=== PATIENT | male | born 1955 | race Caucasian/White ===

== ENCOUNTER → 2017-02-20 10:05 | Day surgery (SDC) | payer OTHER ==
[~2017-02-20 10:05] MED LIST: Buffered Lidocaine 0.9% SYRIN* 5 ML/SYR SYRINGE INTRADERM ONE; Buffered Lidocaine 0.9% SYRIN* 5 ML/SYR SYRINGE ONE; Bupivacaine 0.25% SDV* 30 ML ONE; Dexamethasone IV* 4 MG/ML 1 ML (4 MG) ONE; HYDROcodone/ACETAMIN 5-325 MG* 1 TAB ONE; Ibuprofen TAB* 400 MG ONE; Lidocaine 1% MPF wEPI 200,000* 30 ML SDV ONE; Lidocaine 2% PF * 5 ML VIAL ONE; Ondansetron INJ* 2 MG/ML VIAL IV PRN; Ondansetron INJ* 2 MG/ML VIAL ONE; Propofol* 10 MG/ML 20 ML BTL IV PUSH ONE; Sodium Citrate/Citric Acid* 15 ML UDC ONE; Sodium Citrate/Citric Acid* 15 ML UDC PO ONE; ceFAZolin 2 GM PREMIX (*) 2 GM/50 ML BAG IVPB ONE; fentaNYL* 50 MCG/ML 2 ML VIAL (100 MCG VIAL) ONE
[2017-02-20] MEDS: fentaNYL* 50 MCG/ML 2 ML VIAL (100 MCG VIAL) IV PRN ×4 (15:55→16:51)
[2017-02-20 17:04] VITALS: BP 137/83
--- NOTE | 2017-02-21 10:41 | OP ---
DATE OF OPERATION: 02/20/17 [facility] DATE OF : 57 SURGEON: Andres Camp MD. ROLLER PRINT TENDER: KAYLEEN Alonso. An chef's assistant was needed for entirety of the procedure to aid in positioning of the arm and retraction. ANESTHESIOLOGIST: Dr. Donnell Lawler. ANESTHESIA: General. PRE-OP DIAGNOSES: 1. Right carpal tunnel syndrome. 2. Right ulnar nerve compression at the wrist and elbow. POST-OP DIAGNOSES: 1. Right carpal tunnel syndrome. 2. Right ulnar nerve compression at the wrist and elbow. OPERATIVE PROCEDURE: 1. Right carpal tunnel release. 2. Right ulnar nerve decompression at the wrist 3. Right ulnar nerve decompression at the elbow with anterior transposition. INDICATIONS: Tay has had progressive disease. We talked about risks and benefits and he wanted to proceed. ESTIMATED BLOOD LOSS: 5 mL. COMPLICATIONS: None. FINDINGS: The ulnar nerve was sitting subluxated, perched and draped over the medial epicondyle necessitating the transposition. DESCRIPTION OF PROCEDURE: Tay was seen in the preoperative holding area. The correct site, side, and procedure were identified. We came back to the operating room and the arm was prepped and draped in the usual fashion. A time- out was performed. I began by exsanguinating the arm with the Esmarch and the tourniquet was inflated to 250 mmHg. I then made a 2 to 3 cm incision in the proximal palm in a standard location for an open carpal tunnel release. This was brought back across the wrist flexion crease ulnarly in a Ever-type fashion. Dissection was carried down through the subcutaneous tissue. The fascia was opened proximally and continued distally. I then went ahead and released the transverse carpal ligament just off the radial aspect at the hook of the hamate. The release was completed distally. The median nerve was quite compressed and flattened and purple. Once there was absolutely no compression on the median nerve, I went ahead and just came ulnar to the hook of the hamate. The ulnar nerve vascular bundle was unroofed. Dissection was very carefully done so as to separate the ulnar artery from the ulnar nerve deep to it. Some perforating vessels were cauterized. I went ahead and gently retracted the ulnar nerve and then released the fascia overlying the motor branch to decompress the motor branch. I went ahead and used the tenotomy scissors to continue the decompression proximally and distally. There was at this point, no more further compression on the nerves, so we irrigated out the wound. The wound was closed with 4-0 Monocryl suture. I then abducted and externally rotated the arm. A curvilinear incision was made centered over Robles's ligament. Dissection was carried down with Bovie proximally and distally with tenotomy scissors. The medial antebrachial cutaneous nerve was identified and protected throughout the case. The ulnar nerve was sitting draped and stretched out over the medial epicondyle. It was already subluxated anteriorly. The release was completed proximally and then distally the FCU fascia was released. At this point, there was no overlying fascia or Robles's ligament that was compressing the nerve; however, the nerve was draped and perched over the medial epicondyle. I therefore went ahead and excised the medial intermuscular septum. I excised the leading edge of the FCU fascia. I went ahead and made step cut incision in the fascia and went ahead and excised all the septa in between the muscles in the flexor pronator mass. The nerve was transposed anteriorly unto the muscular bed. The double opposing fascial flaps were then sewed end to end to provide a nice loose fascial sling over the nerve keeping it in nicely in the transposed position. I then flexed and extended the below. There was absolutely no compression or kinking of the nerve. Again, I had excised the medial intermuscular septum and the leading edge of the FCU fascia. Everything was looking good, so we irrigated out the wounds. Subcutaneous tissue was reapproximated with 3-0 Vicryl. The skin was closed with 3-0 Monocryl suture and Steri-Strips. The wounds were infiltrated with 0.25% plain Marcaine. The wounds were dressed in with some Xeroform, 4x4s and ABD at the elbow, sterile Webril and then a long-arm splint was applied with a lateral buttress. Tourniquet was deflated and the hand pinked up immediately. He was taken to the recovery room in stable condition. [id number]/[facility] #: [id number] MTDD
== END | disposition home or self-care (01) ==
LOC: OR 10:05
PROVIDERS: ATTEND Orthopaedic Surgery Hand Surgery
DX: G56.01 Carpal tunnel syndrome, right upper limb (principal); G56.21 Lesion of ulnar nerve, right upper limb; Z87.891 Personal history of nicotine dependence; Z86.718 Personal history of other venous thrombosis and embolism; Z79.01 Long term (current) use of anticoagulants; Z88.8 Allergy status to other drugs, medicaments and biological substances
CPT/HCPCS: A9270-GY; J0690; J1100; J2001; J2405; J2704; J3010

== ENCOUNTER 2017-03-01 02:43 | Emergency (ER) | payer OTHER ==
[2017-03-01] MEDS ORDERED: fentaNYL* 50 MCG/ML 2 ML VIAL (100 MCG VIAL) IV SLOW PU ONE ×2 (02:59→03:27)
[2017-03-01] MEDS ORDERED: Ondansetron INJ* 2 MG/ML VIAL IV ONE (03:01)
[2017-03-01] MEDS ORDERED: NS 0.9% 500 ML* 500 ML IV ONE (03:01)
[2017-03-01 03:31] LABS: Hematocrit 41 % (42-52); Hemoglobin 14.1 g/dl (14.0-18.0); Mean Corpuscular HGB Conc 34 g/dl (31-36); Mean Corpuscular Hemoglobin 31 pg (27-31); Mean Corpuscular Volume 91 fL (80-94); Mean Platelet Volume 8 um3 (7.4-10.4); Red Blood Count 4.54 10^6/ul (4.0-5.4); Red Cell Distribution Width 14 % (10.5-15); White Blood Count 11.8 10^3/ul (3.5-10.8)
[2017-03-01 03:42] LABS: ALT 43 U/L (7-52); Albumin 4.2 g/dL (3.2-5.2); Alkaline Phosphatase 63 U/L (34-104); BUN/Creatinine Ratio 17.6 (8-20); Blood Urea Nitrogen 18 mg/dL (6-24); C Reactive Protein 1.48 mg/L (< 5.00); CO2 Carbon Dioxide 25 mmol/L (22-32); Calcium 9.4 mg/dL (8.6-10.3); Chloride 100 mmol/L (101-111); EGFR African American 95.8 (>60); EGFR Non-African American 74.5 (>60); Globulin 2.9 g/dL (2-4); Glucose 127 mg/dL (70-100); Sodium 134 mmol/L (133-145); Total Protein 7.1 g/dL (6.4-8.9)
[2017-03-01 03:51] LABS: Anion Gap 9 mmol/L (2-11)
[2017-03-01] MEDS ORDERED: NS 0.9% 1000 ML* 1,000 ML IV ONE (04:04)
[2017-03-01] MEDS ORDERED: LORazepam INJ* 2 MG/ML 1 ML VIAL IV PUSH ONE (04:05)
[2017-03-01] MEDS ORDERED: Cephalexin CAP* 500 MG PO ONE (05:38)
--- NOTE | 2017-03-01 06:06 | ED ---
Nicole Deshpande Thomas, scribed for Nick Bennett MD on 03/01/17 at 0338 . Upper Extremity Pain - HPI Summary HPI Summary: The pt is a 61 y/o M who had carpel tunnel surgery and ulnar nerve transposition nine days ago. The patient was successfully managing his pain until today at 00:30, when he woke up with severe pain in his RUE. The pain is concentrated to his right elbow and radiates down to his hand. He describes the pain as burning. He is in severe pain. He called his orthopedist Dr. Valencia, who suggested the patient unwrap his berenice bandage; however, the patient felt unable to do this. The patient has been managing his pain at home with Tylenol, although he did take a hydrocodone today at 01:00. He denies a fever. - History of Current Complaint Chief Complaint: EDExtremityUpper Stated Complaint: ELBOW/FINGER PAINS Time Seen by Provider: 03/01/17 02:52 Hx Obtained From: Patient Mechanism Of Injury: Other - Surgery Onset/Duration: Started Days Ago - 9, Still Present, Worse Since - today at 00: 30 Timing: Constant Severity Currently: Severe Pain Location: Elbow - R Character: Burning Alleviating Factor(s): Nothing Associated Signs & Symptoms: Negative: Fever Related History: Other: - Carpal tunnel surgery and ulnar nerve transposition - Allergies/Home Medications Allergies/Adverse Reactions: Allergies Allergy/AdvReac Type Severity Reaction Status Date / Time Itraconazole [From Sporanox] Allergy Intermediate Hives Verified 03/01/17 02:50 PMH/Surg Hx/FS Hx/Imm Hx Previously Healthy: No Endocrine/Hematology History: Reports: Other Endocrine/Hematological Disorders - rheumatoid arthritis Denies: Hx Diabetes Cardiovascular History: Reports: Hx Hypercholesterolemia, Hx Peripheral Vascular Disease - 2010 , ON XARELTO DAILYDVT Denies: Hx Hypertension, Hx Pacemaker/ICD, Other Cardiovascular Problems/ Disorders Respiratory History: Denies: Hx Chronic Obstructive Pulmonary Disease (COPD) History: Denies: Hx Dialysis, Hx Renal Disease Musculoskeletal History: Reports: Hx Arthritis - RHEUMATOID & OSTEO, Hx Tendonitis - RIGHT ARM Denies: Hx Scoliosis, Other Musculoskeletal History Sensory History: Reports: Hx Contacts or Glasses - WEAR GLASSES Denies: Hx Hearing Aid Comment Only: Other Sensory Impairments - see triage note. Opthamlomology History: Reports: Hx Contacts or Glasses - WEAR GLASSES Comment Only: Other Sensory Impairments - see triage note. Neurological History: Denies: Hx Dementia, Hx Headaches, Hx Seizures, Other Neuro Impairments/ Disorders Psychiatric History: Denies: Hx Panic Disorder - Cancer History Cancer Type, Location and Year: SKIN CANCER ON BACK REMOVED Hx Chemotherapy: No Hx Radiation Therapy: No Hx Palliative Cancer Treatment: No - Surgical History Surgery Procedure, Year, and Place: 1999 [place]ASIX - EYE [place] (DR JACOBSEN). 1992 [place] [facility] [place] HEEL [place] [facility] [place] TOTAL HIP LEFT REPLACEMENT 03/2015. RIGHT KNEE [place]. [place] [facility] [place] Anesthesia Reactions: No Infectious Disease History: No Infectious Disease History: Denies: Traveled Outside the [place] in Last 30 Days - Family History Known Family History: Negative: Seizure Disorder - Social History Alcohol Use: Weekly Alcohol Amount: LAST 2 MONTHS SPORADIC Substance Use Type: Reports: None Smoking Status (MU): Former Smoker Type: Cigarettes Amount Used/How Often: 1/2PPD 6 YRS Have You Smoked in the Last Year: No Review of Systems Negative: Fever Positive: Other - RUE pain All Other Systems Reviewed And Are Negative: Yes Physical Exam - Summary Physical Exam Summary: VITAL SIGNS: Reviewed. GENERAL: Patient is a well-developed and nourished male who is lying comfortable in the stretcher. Patient is not in any acute respiratory distress. HEAD AND FACE: No signs of trauma. No ecchymosis, hematomas or skull depressions. No sinus tenderness. EYES: PERRLA, EOMI x 2, No injected conjunctiva, no nystagmus. EARS: Hearing grossly intact. Ear canals and tympanic membranes are within normal limits. MOUTH: Oropharynx within normal limits. NECK: Supple, trachea is midline, no adenopathy, no JVD, no carotid bruit, no c- spine tenderness, neck with full ROM. CHEST: Symmetric, no tenderness at palpation LUNGS: Clear to auscultation bilaterally. No wheezing or crackles. CVS: Regular rate and rhythm, S1 and S2 present, no murmurs or gallops appreciated. ABDOMEN: Soft, non-tender. No signs of distention. No rebound no guarding, and no masses palpated. Bowel sounds are normal. EXTREMITIES: The patient has significant swelling and tenderness over the right elbow, distal more than proximal. There is minimal oozing through the scar consistent with a hematoma. Radial and ulnar pulses are intact. The patient has decreased sensation along the course of the ulnar nerve. NEURO: Alert and oriented x 3. No acute neurological deficits. Speech is normal and follows commands. SKIN: Dry and warm Triage Information Reviewed: Yes Vital Signs On Initial Exam: Initial Vitals Temp Pulse Resp BP Pulse Ox 97.4 F 66 20 121/74 100 03/01/17 02:45 03/01/17 02:45 03/01/17 02:45 03/01/17 02:45 03/01/17 02:45 Vital Signs Reviewed: Yes - Negro Coma Scale Coma Scale Total: 15 Diagnostics - Vital Signs Vital Signs Temp Pulse Resp BP Pulse Ox 03/01/17 03:32 20 03/01/17 03:10 20 03/01/17 02:45 97.4 F 66 20 121/74 100 - Laboratory Lab Results: Lab Results 03/01/17 Range/Units 03:17 WBC 11.8 H (3.5-10.8) 10^3/ul RBC 4.54 (4.0-5.4) 10^6/ul Hgb 14.1 (14.0-18.0) g/dl Hct 41 L (42-52) % MCV 91 (80-94) fL MCH 31 (27-31) pg MCHC 34 (31-36) g/dl RDW 14 (10.5-15) % Plt Count 289 (150-450) 10^3/ul MPV 8 (7.4-10.4) um3 Neut % (Auto) 54.7 (38-83) % Lymph % (Auto) 35.4 (25-47) % [place] % (Auto) 6.7 (1-9) % Eos % (Auto) 2.6 (0-6) % Baso % (Auto) 0.6 (0-2) % Absolute Neuts (auto) 6.5 (1.5-7.7) 10^3/ul Absolute Lymphs (auto) 4.2 (1.0-4.8) 10^3/ul Absolute Monos (auto) 0.8 (0-0.8) 10^3/ul Absolute Eos (auto) 0.3 (0-0.6) 10^3/ul Absolute Basos (auto) 0.1 (0-0.2) 10^3/ul Absolute Nucleated RBC 0.02 10^3/ul Nucleated RBC % 0.2 Result Diagrams: 03/01/17 03:17 03/01/17 03:17 Lab Statement: Any lab studies that have been ordered have been reviewed, and results considered in the medical decision making process. Re-Evaluation - Re-Evaluation First Eval Re-Evaluation Time: 04:00 Change: Unchanged Comment: I took off the wrapping and splints. I examined the arm, as described in the physical exam. Second Eval Re-Evaluation Time: 04:27 Change: Improved Comment: About two inches of the patient's scar opened and a large amount of blood came out, including clots. The patient regained sensation. The patient's pain is almost gone. Course/Dx - Course Assessment/Plan: The pt is a 61 y/o M who had carpel tunnel surgery and ulnar nerve transposition nine days ago. The patient was successfully managing his pain until today at 00:30, when he woke up with severe pain in his RUE. The pain is concentrated to his right elbow and radiates down to his hand. He describes the pain as burning. He is in severe pain. He called his orthopedist Dr. Valencia, who suggested the patient unwrap his berenice bandage; however, the patient felt unable to do this. The patient has been managing his pain at home with Tylenol, although he did take a hydrocodone today at 01:00. He denies a fever. In the ED course the patient was given fentanyl, Ativan, Zofran, and IV fluids. Bloodwork was obtained. I consulted with Dr. Valencia, orthopedics, who came to the ED to see the patient. He packed the wound. The patient is diagnosd with postoperative hematoma and will follow up at Dr. Amezquita office in two days. The patient is prescribed Keflex. - Diagnoses Provider Diagnoses: Postoperative hematoma, right elbow - Physician Notifications Discussed Care of Patient With: Matthew Valencia Time Discussed With Above Provider: 04:02 Instructed by Provider To: Other - I discussed patient care with Dr. Valencia, orthopecics. He will come to the ED to see the patient. He packed the wound. Discharge - Discharge Plan Condition: Stable Disposition: HOME Prescriptions: Cephalexin CAP* [Keflex CAP*] 500 mg PO QID #30 cap Patient Education Materials: Hematoma (ED) Referrals: Matthew Valencia MD [Medical Doctor] - 03/03/17 Reece Guerrero MD [Primary Care Provider] - If Needed Additional Instructions: Follow up at Dr. Valencia's office on Monday, March 03, 2017. Return to the emergency department for any new or worsening symptoms. The documentation as recorded by the Nicole souza Thomas accurately reflects the service I personally performed and the decisions made by Sabrina zuniga Abdul, MD.
[2017-03-01 06:31] VITALS: BP 119/65
--- NOTE | 2017-03-01 20:36 | CONS ---
CONSULTATION REPORT/HISTORY AND PHYSICAL UPDATE: DATE OF ENCOUNTER: 03/01/17 - EMERGENCY DEPT CHIEF COMPLAINT: Right elbow. HISTORY OF PRESENT ILLNESS: Mr. Simon is a 61-year-old male who had undergone a right ulnar nerve transposition and carpal tunnel release with Dr. Camp, on 02/20/17. He had done well until just recently. Over the weekend, he had 1 episode of pain with the arm and had called the office, but his pain had resolved very quickly and he really did not think much of it. Yesterday, he had noted some ecchymosis coming upwards from the splint and had called the office concerned about that. He had not had any increase in pain or numbness and tingling or motor abnormality at that point. He was reassured that this was something that can happen and he was reassured. He went to go bed at 11 p.m. and had noted an increase in pain about the elbow. He did take some Tylenol , but this proved to be ineffective. At midnight, he had taken 2 of the [place] and this also had no effect. He had called at 2 in the morning and I had spoken with him and at that point, he had noted altered sensation over the ring and little fingers where sensation had been quite good as well as a radiating pain out to those fingers. I had wanted him to try and take his dressing down and remove it, and as he was on speaker phone, was able to talk with his about this as well. His had noted that he had become ashen and a little tremulous when trying to do this on his own, and I had instructed them instead to come to the emergency room. When I had asked, he had no complaints of fevers , chills, or sweats until he was starting to take his dressing down. The ER had called me when he had gotten there at about 3 a.m. and the ER attending said he had a huge hematoma. He also had received a bit of fentanyl and additional pain medicine with absolutely no improvement and the ER attendant was concerned that this needed to be decompressed. I then changed to come in and by the time I had arrived in the emergency room at about 3:30 to 3:45, the ER attendant had already opened the wound a little bit and obtained quite a gush of blood. This pain had improved tremendously and he was much more comfortable. Unfortunately, there was still continued bleeding from the area and when I went to look at him, he was saturating his dressings. PAST MEDICAL HISTORY: DVT x2, unprovoked; rheumatoid arthritis; dyslipidemia. PAST SURGICAL HISTORY: Left shoulder rotator cuff repair with Dr. Hubbard, left total hip arthroplasty with Dr. Krueger. CURRENT MEDICATIONS: 1. Indomethacin 25 mg b.i.d. 2. Methotrexate 2.5 mg 3 tabs weekly. 3. Crestor 10 mg daily. 4. Folic acid 1 mg daily. 5. Xarelto 20 mg daily. 6. West[place]ort 0.2% as directed. 7. Enbrel 50 mg weekly. MEDICATION ALLERGIES: SPORANOX. 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 While trying to staunch his bleeding, we talked a bit about his job while he was there as he is very proud of being able to have helped many students achieve [employer] through the financial sales assistant office. He is and resides in [place]. With his recent long-term, he has been able to do things about the house such as clean out the attic something which has been bothering him for decades. REVIEW OF SYSTEMS: He has no complaints about any other organ systems. PHYSICAL EXAM: General: Mature male. No apparent distress, lying on the stretcher with his right arm raised above his head. Right elbow: His wound has been mostly open. The wound itself was approximately 9 cm in length and a good 6 cm or so is open. There was what appeared to be a running PDS stitch within the substance of the wound itself, but the end was tied down and I was unable to retrieve the stitch. Initially, with removing the packing, blood continued to pour from the area. Despite holding pressure for 10 minutes at a time and then removing the packing, he continued to bleed quite copiously. Eventually, tourniquet was placed over the arm and this was just one of the rubber bands that are used for drawing blood. With this and then holding pressure for 5 minutes and then 10 minutes, his bleeding actually slowed to a trickle and then we continued to hold pressure while one of the small cautery units was obtained by the ER staff. Just as the cautery was made ready and we opened the wound, there was of course absolutely no bleeding. I could see where he had more of a muscular tissue a little bit deeper as well as a subcutaneous tissue, and then with manipulating it, he again did not bleed. Wound was then again packed and the tourniquet removed and after 5 minutes, the wound was checked again and while he had a gentle oozing over the entire wound, he did not bleed. Pressure was held again, and once again, the wound was checked and there was just a generalized oozing. Two small pieces of Surgicel were laid within the wound and Steri-Strips were applied to bring the wound within about approximately quarter inch of approximation. A little bit of pressure was held over it and then no additional pressure was held. After another 5 to 10 minutes, the Surgicel had stained a little bit, but he was not dripping the way he previously had been. Fresh dressing, ABD, and a new posterior mold splint was made for him. I did discuss with him that he should hold the Xarelto for today and tomorrow and Monday as my concern now is much more for infection considering the wound had been opened not in a sterile field here in the emergency room. It did, however , look clean and I did try to use sterile technique with trying to staunch the bleeding. He did receive 1 dose of Ancef here in the emergency room and I asked the ER attendant to give him prescription of Keflex. IMPRESSION AND PLAN: Mr. Tay Simon and his were very pleased with the way things had gone in the emergency room, as he had sensory changes and motor changes when they had first presented to the emergency room, but by the time I had left them at 6 o'clock in the morning, his sensation had improved such that he reports the sensation over his ring and little finger was equal to how it had felt right after surgery and he could move his hand much easier. We will add him on to the OR schedule this Monday, which is approximately 48 hours for a second look at the wound to make sure that he is not bleeding and we will wash him out and I will probably reapproximate his subcutaneous tissue, but leave the skin itself open to allow him to drain as needed. [id number]/[facility] #: [id number] JOCE
== END 2017-03-01 06:31 | disposition home or self-care (01) ==
LOC: ED 02:43
DX: L76.32 Postprocedural hematoma of skin and subcutaneous tissue following other procedure (principal); Z98.890 Other specified postprocedural states
CPT/HCPCS: 36415; 80053; 85025; 85610; 85730; 86140; 86850; 86900; 86901; 96374; 96375; 99284; A9270-GY; J2060; J2405; J3010

== ENCOUNTER 2017-03-03 07:37 | Day surgery (SDC) | payer OTHER ==
[~2017-03-03 07:37] MED LIST changes: -Buffered Lidocaine 0.9% SYRIN* 5 ML/SYR SYRINGE ONE; -Bupivacaine 0.25% SDV* 30 ML ONE; -Dexamethasone IV* 4 MG/ML 1 ML (4 MG) ONE; +Famotidine IV* 10 MG/ML 2 ML (20 mg) IV ONE; -HYDROcodone/ACETAMIN 5-325 MG* 1 TAB ONE; -Ibuprofen TAB* 400 MG ONE; -Lidocaine 1% MPF wEPI 200,000* 30 ML SDV ONE; -Lidocaine 2% PF * 5 ML VIAL ONE; -Ondansetron INJ* 2 MG/ML VIAL IV PRN; -Ondansetron INJ* 2 MG/ML VIAL ONE; -Propofol* 10 MG/ML 20 ML BTL IV PUSH ONE; -Sodium Citrate/Citric Acid* 15 ML UDC ONE; -Sodium Citrate/Citric Acid* 15 ML UDC PO ONE; -ceFAZolin 2 GM PREMIX (*) 2 GM/50 ML BAG IVPB ONE; -fentaNYL* 50 MCG/ML 2 ML VIAL (100 MCG VIAL) ONE
[2017-03-03] MEDS ORDERED: Buffered Lidocaine 0.9% SYRIN* 5 ML/SYR SYRINGE ONE (08:07)
[2017-03-03] MEDS ORDERED: ceFAZolin 2 GM PREMIX (*) 2 GM/50 ML BAG IVPB ONE (08:07)
[2017-03-03] MEDS ORDERED: Famotidine IV* 10 MG/ML 2 ML (20 mg) ONE (08:07)
[2017-03-03] MEDS ORDERED: oxyCODONE/Acetamin 5/325 MG* TAB PO PRN (08:22)
[2017-03-03] MEDS ORDERED: DiMENhydriNATE IV* 50 MG/ML VIAL IV PUSH PRN (08:22)
[2017-03-03] MEDS ORDERED: PROCHLORPERAZINE INJ 5 MG/ML 2 ML VIAL IV PRN (08:22)
[2017-03-03] MEDS ORDERED: Morphine INJ* 2 MG/ML 1 ML CARPUJECT IV PRN (08:22)
[2017-03-03] MEDS ORDERED: fentaNYL* 50 MCG/ML 2 ML VIAL (100 MCG VIAL) IV PRN (08:22)
[2017-03-03] MEDS ORDERED: KETAMINE HCL* 50 MG/ML 10 ML VIAL ONE (08:56)
[2017-03-03] MEDS ORDERED: fentaNYL* 50 MCG/ML 2 ML VIAL (100 MCG VIAL) ONE ×2 (08:56→10:51)
[2017-03-03] MEDS ORDERED: Midazolam* 1 MG/ML 5 ML VIAL (5 MG) ONE (08:56)
[2017-03-03] MEDS ORDERED: Dexamethasone IV* 4 MG/ML 1 ML (4 MG) ONE (09:21)
[2017-03-03] MEDS ORDERED: Ketorolac INJ* 30 MG/ML 1 ML VIAL ONE (09:21)
[2017-03-03] MEDS ORDERED: Propofol* 10 MG/ML 20 ML BTL IV PUSH ONE (09:21)
[2017-03-03] MEDS ORDERED: Ondansetron INJ* 2 MG/ML VIAL ONE (09:21)
[2017-03-03] MEDS ORDERED: PROCHLORPERAZINE INJ 5 MG/ML 2 ML VIAL ONE (09:21)
[2017-03-03] MEDS ORDERED: Lidocaine 1% MPF wEPI 200,000* 30 ML SDV ONE ×2 (09:40→11:51)
[2017-03-03] MEDS ORDERED: Bupivacaine 0.5% SDV PF* 30 ML VIAL ONE ×2 (09:40→11:51)
[2017-03-03] MEDS ORDERED: oxyCODONE/Acetamin 5/325 MG* TAB ONE (10:51)
--- NOTE | 2017-03-03 11:16 | OP ---
DATE OF OPERATION: 03/03/17 [facility] DATE OF : 57 ATTENDING SURGEON: Matthew Valencia MD ASSISTANTS: KAYLEEN Zamora ANESTHESIOLOGIST: Arslan Rey MD ANESTHESIA: General. PRE-OP DIAGNOSIS: Open wound, right elbow with hematoma. POST-OP DIAGNOSIS: Open wound, right elbow with hematoma. OPERATIVE PROCEDURE: I and D right elbow, wound closure. ESTIMATED BLOOD LOSS: Minimal. COMPLICATIONS: None. SUMMARY: Mr. Simon is a 61-year-old male who on February 18 had undergone a right ulnar nerve transposition with a carpal tunnel release. He tolerated the procedure well until Monday (02/28) when he developed a hematoma. He was on Xarelto and he had neurological changes with altered sensation as well as loss of finger motion. He had the hematoma drained in the emergency room, but still had significant bleeding and so this wound had been left open. Considering the wound had been opened in the ED and while it was clean in the ED , it was not good sterile technique. I discussed with him that a second look at the wound at 48 hours to wash it out and double check and make sure he was not bleeding, would be prudent to make sure he does not develop a deep infection. Risks of surgery such as infection, scar formation, stiffness were discussed and he had wished to proceed. DESCRIPTION OF PROCEDURE: The patient was brought to the OR and an LMA was placed. Tourniquet was placed over the proximal right arm, but was not used during the case. Right hand and arm was prepped and then draped. Wound was explored and he had no bleeding present. I had packed him with a little Surgicel and few small pieces of the Surgicel were removed, but most of them had broken down already. Wound was then irrigated using 3 L of normal saline with pulse lavage. Sutures in the hand were removed and Steri-Strips were applied. Looking deeper in the wound, there was no pumpers, no oozing, and he had good granulation tissue forming. I thought reapproximating his deep tissues would be good and 3-0 nylon was used as a larger retention stitch and 3 such stitches were placed. I could easily come through the tissues with a small hemostat, so it could be seen where he could drain, but this also reapproximated the soft tissues nicely, so if he did not have a deeper infection , this would heal nicely. Sterile dressing and a posterior mold splint were also applied. The patient then had the LMA removed in the OR and was stable on transfer to the recovery room. DISPOSITION/DISCHARGE SUMMARY: Mr. Simon is a 61-year-old male just underwent an I and D and wound closure of his right elbow. He tolerated the procedure well with no complications. He is currently here in the recovery room. Once extubated more from his general anesthesia can tolerate p.o., his pain well controlled, he will be discharged home. He is already on Keflex which was started on Monday night/Monday morning and he still has Colon left over from his original surgery. He should keep his followup visit with Dr. Camp next week so that they can double check the wound and remove the sutures if it is time. If there are any problems in the meanwhile or if anything odd should occur, there are instructions to give the office a call. [id number]/[facility] #: [id number] JOCE
[2017-03-03 12:10] VITALS: BP 138/84
== END 2017-03-03 12:00 | disposition home or self-care (01) ==
LOC: OR 07:37
PROVIDERS: ATTEND Orthopaedic Surgery
DX: G97.61 Postprocedural hematoma of a nervous system organ or structure following a nervous system procedure (principal); S51.002A Unspecified open wound of left elbow, initial encounter; X58.XXXA Exposure to other specified factors, initial encounter; Y92.9 Unspecified place or not applicable; Z79.01 Long term (current) use of anticoagulants; Z88.8 Allergy status to other drugs, medicaments and biological substances; I82.409 Acute embolism and thrombosis of unspecified deep veins of unspecified lower extremity; M06.9 Rheumatoid arthritis, unspecified; E78.5 Hyperlipidemia, unspecified; Z87.891 Personal history of nicotine dependence
CPT/HCPCS: A9270-GY; J0690; J0780; J1100; J1885; J2001; J2250; J2405; J2704; J3010

== ENCOUNTER 2017-10-02 14:07 | Emergency (ER) | payer OTHER ==
[2017-10-02 14:14] VITALS: BP 154/91
--- NOTE | 2017-10-02 15:05 | UC ---
Liana Deshpande Jacob, scribed for Fran Juarez MD on 10/02/17 at 1439 . Complaint Male HPI - HPI Summary HPI Summary: Pt is a 62 y/o male presenting w/ penile edema onsetting 10/02/17. Pt states slight itching on swollen area but no drainage nor dysuria. Pt denies recent sexual activity, masturbation, condom usage, lubrication usage, new clothes, nor new detergent. He does note that he has been outside recently. Pt takes a blood thinner, Xarelto, and cholesterol medication. He had a negative reaction to a high dose of prednisone (high BP), with better reaction to lower doses. - History of Current Complaint Chief Complaint: UCGU Stated Complaint: PRIVATE Time Seen by Provider: 10/02/17 14:18 Hx Obtained From: Patient Onset/Duration: Sudden Onset Timing: Constant Severity Currently: None Pain Intensity: 0 Pain Scale Used: 0-10 Numeric - 0/10 Location: Penis Associated Signs And Symptoms: Negative: Fever - Allergies/Home Medications Allergies/Adverse Reactions: Allergies Allergy/AdvReac Type Severity Reaction Status Date / Time itraconazole [From Sporanox] Allergy Hives Verified 10/02/17 14:14 PMH/Surg Hx/FS Hx/Imm Hx Endocrine History: Dyslipidemia Cardiovascular History: Hypertension - Surgical History Surgical History: Yes Surgery Procedure, Year, and Place: 1999 LASIX - EYE [place] (DR JACOBSEN). 1992 VASECTOMY [facility] [place]. 1984 LT HEEL BONE SPUR REMOVED [facility] [place]. 2014 TOTAL HIP LEFT REPLACEMENT [place]. 2008 RIGHT KNEE SCOPE [place]. 2014 LEFTSHOULDER SURGERY [facility] [place]. RIGHT CTR AND ULNAR NERVE TRANSPOSTION - [facility] [place] - Family History Known Family History: Negative: Seizure Disorder - Social History Alcohol Use: Occasionally Alcohol Amount: 2 DRINKS PER WEEK Substance Use Type: None Smoking Status (MU): Former Smoker Type: Cigarettes Amount Used/How Often: 1/2PPD 6 YRS Have You Smoked in the Last Year: No When Did the Patient Quit Smoking/Using Tobacco: 1980 - Immunization History Most Recent Influenza Vaccination: 2014 Most Recent Tetanus Shot: 2015 Most Recent Pneumonia Vaccination: NEVER Review of Systems Constitutional: Negative - fever Genitourinary: Negative - dysuria, Vaginal/Penile Itching - slight penile itching, Other - penile edema All Other Systems Reviewed And Are Negative: Yes Physical Exam - Summary Physical Exam Summary: General: well-appearing, no pain distress Skin: warm, color reflects adequate perfusion, dry. Penile edema at base of glands, but glands themselves are not swollen. Swelling is in superficial skin layers, corporal tissue is not swollen. Head: normal Eyes: EOMI, PERRL ENT: normal Neck: supple, nontender Respiratory: CTA, breath sounds present Cardiovascular: RRR Abdomen: soft, nontender Bowel: present Musculoskeletal: normal, strength/ROM intact Neurological: sensory/motor intact, A&O x3 Psychological: affect/mood appropriate Triage Information Reviewed: Yes Vital Signs: Initial Vital Signs Temp 98.4 F 10/02/17 14:10 Pulse 80 10/02/17 14:10 Resp 12 10/02/17 14:10 BP 154/91 10/02/17 14:10 Pulse Ox 98 10/02/17 14:10 Vital Signs Reviewed: Yes Complaint Male Course/Dx - Course Course Of Treatment: PROBABLE CONTACT DERMATITIS. ON EXAM TODAY, THERE DOES NOT APPEAR TO BE INFECTION. NO DIFFICULTIES WITH URINATION. PATIENT REPORTS WHEN ON HIGH DOSES OF PREDNISONE, HE REACTS WITH HTN. REPORTS HE HAS BEEN ABLE TO TAKE 10MG A DAY SAFELY IN THE PAST. HE WILL F/U WITH UROLOGY. WE DISCUSSED IF HE IS UNABLE TO URINATE, HE NEEDS TO GET SEEN RIGHT AWAY. - Differential Dx/Diagnosis Provider Diagnoses: SKIN SWELLING OF SHAFT OF PENIS Discharge - Sign-Out/Discharge Documenting (check all that apply): Discharge/Admit/Transfer - Discharge Plan Condition: Stable Disposition: HOME Prescriptions: predniSONE TAB* [Deltasone 10 MG TAB*] 10 mg PO DAILY PRN #10 tab PRN Reason: Rash Referrals: Reece Guerrero MD [Primary Care Provider] - Morgan Jacobson MD [Medical Doctor] - Additional Instructions: FOLLOW UP WITH UROLOGY FOR THE SWELLING OF YOUR PENIS. CALL DR JACOBSON TODAY. GET RECHECKED FOR ANY WORSENING OF YOUR CONDITION OR QUESTIONS OR CONCERNS. - Billing Disposition and Condition Condition: STABLE Disposition: Home The documentation as recorded by the Liana souza Jacob accurately reflects the service I personally performed and the decisions made by me, Fran Juarez MD.
== END 2017-10-02 14:35 | disposition home or self-care (01) ==
LOC: UCEAST 14:07
DX: R22.9 Localized swelling, mass and lump, unspecified (principal); I10 Essential (primary) hypertension; E78.5 Hyperlipidemia, unspecified
CPT/HCPCS: 99212; G0463

== ENCOUNTER 2017-10-27 12:35 | Emergency (ER) | payer OTHER ==
--- OUTSIDE RECORDS SUMMARY | 2017-10-27 12:41 | XMS REPORT ---
:1955 External Reference #:[id number] Author Organization [facility] Address [address] [place] [address] [place] [address] Phone [phone] Care Team Providers Name Role Phone Reece Guerrero MD Primary Care Physician Unavailable Payers Type Date Identification Numbers Payment Provider Subscriber Commercial Effective: Policy Number: [employer]DEB Tarik Ruiz 2014 [id number] Group Number: [id number] [address] PayID: [id number] [place] [address] Commercial Effective: 1993 Policy Number: [id number] Anthony-DEB Tarik Ruiz Expires: 1993 Group Number: [id number] [address] PayID: [id number] [place] [address] Medigap Part B Effective: Policy Number: [employer] Insurance Tarik Ruiz 1993 [id number] Expires: 1993 Group Number: [id number] [address] PayID: [id number] [place] [address] Problems Date Description Provider Status Onset: 10/31/2014 Localized, primary osteoarthritis of Lupe Krueger M.D. Active the pelvic region and thigh Onset: 06/19/2015 Prosthetic arthroplasty of the hip Lupe Krueger M.D. Active Onset: 01/06/2017 Lesion of ulnar nerve Andres Camp MD Active Onset: 01/06/2017 Carpal tunnel syndrome of right wrist Andres Camp MD Active Onset: 03/01/2017 Nontraumatic hematoma of soft tissue Matthew Valencia M.D. Active Onset: 03/15/2017 Disorder of shoulder Andres Camp MD Active Family History Date Family Member(s) Problem(s) Comments General Heart Disease General Stroke General Hypertension General Headaches : (2001) Father due to Stroke Mother Alive And Well Mother Hypertension Children 2 Son Age 29; Alive and Well Daughter Age 26; Alive and Well Siblings 4 Brother Age 60; Obese, circulatory issues Brother Age 57; Alive and Well Sister Age 59; Alive and Well Sister Age 55; Alive and Well with arthritis. Social History Type Date Description Comments Lives With spouse Occupation Logistics Lead Occupation Retired ETOH Use Currently consumes alcohol Smoking Patient is a former smoker Exercise Type/Frequency Exercises regularly Allergies, Adverse Reactions, Alerts Date Description Reaction Status Severity Comments 11/22/2013 Sporanox active hives Medications Medication Date Status Form Strength Qnty SIG Indications Ordering Provider Methotrexate 10/31 Active Tablets 2.5mg 3 tabs by Lupe mouth every Evans, week M.D. Crestor Active Tablets 5mg 1 by mouth Unknown /0000 every day Folic Acid Active Tablets 1mg 1 by mouth Unknown /0000 every day Xarelto Active Tablets 10mg 1 by mouth Unknown /0000 every day Enbrel Active Soln 50mg/ml inject the Unknown 0000 Prefill contents of Syringe one syringe (50mg) subcutaneousl y once a week.single-u se syringe. refrigerate. Hydrocortisone Active Cream 0.2% topical twice Unknown Valerate daily to area as needed Nasacort Active Aerosol as needed Unknown Allergy 24HR /0000 Hydrocodone-Cody 02/20 Hx Tablets 5-325mg 30tab 1 or 2 tabs Andres maldonado s by javier Camp MD - every 6-8 04/14 hours needed for pain Indomethacin 06/18 Hx Capsules 25mg 90cap 1 tablet by Z47.1 s mouth three Bordoni, - times a day GROUNDS PERSON 09/27 Percocet 04/06 Hx Tablets 5-325mg 40tab 1 -2 tabs by Denise s mouth every Bordoni, - 4-6 hours as GROUNDS PERSON 05/01 needed pain Oxycontin 12/21 Hx Tab ER 10mg 60tab One tablet by Denise 12H s mouth twice a Bordoni, - Abuse-Det day GROUNDS PERSON 04/30 Oxycodone HCL 03/27 Hx Capsules 5mg 40cap 1-2 tabs by s mouth every 6 Annie, - hours as M.D. 04/30 needed for breakthrough pain Percocet 03/11 Hx Tablets 5-325mg 60tab 1-2 tablets M16.12 s by mouth Cornelius, - every 4-6 M.D. 04/30 hours as needed for pain Percocet 01/28 Hx Tablets 5-325mg 60tab 1-2 tabs by s mouth four Annie, - times a day M.D. 04/30 as needed Enbrel 00 Hx 50 ml per Unknown /0000 week - 10/31 Methotrexate 00 Hx 50 mg per Unknown /0000 week - 10/31 Celebrex Hx Capsules 200mg 1 by mouth Unknown /0000 every day - 03/10 Nasacort Aq Hx Unknown /0000 - 03/10 Westcort Hx Ointment 0.2% as directed Unknown /0000 - 09/27 Jublia 00 Hx Solution 10% apply once Unknown /0000 daily to - affected nail 09/27 for 48 weeks. Medications Administered in Office Medication Date Status Form Strength Qnty SIG Indications Ordering Provider Celestone 3 mg Administered Injection Andres and 3mg 017 MD Conrado Depomedrol Administered Injection Pepe 80MG 015 Eli Hubbard Depomedrol Administered Injection Pepe 80MG 014 Eli Hubbard Vital Signs Date Vital Result Comment 09/28/2017 Height 68.25 inches 5'8.25" Weight 180.00 lb declined Heart Rate 60 /min BP Systolic Sitting 132 mmHg BP Diastolic Sitting 86 mmHg Respiratory Rate 16 /min BMI (Body Mass Index) 27.2 kg/m2 08/18/2017 Height 68.25 inches 5'8.25" Heart Rate 66 /min BP Systolic 1222 mmHg BP Diastolic 84 mmHg Respiratory Rate 16 /min Body Temperature 98.2 F Pain Level 2 04/14/2017 Height 68.25 inches 5'8.25" Weight 175.00 lb Heart Rate 76 /min Respiratory Rate 14 /min Body Temperature 98.7 F Pain Level 2 BMI (Body Mass Index) 26.4 kg/m2 03/15/2017 Height 68.25 inches 5'8.25" Weight 175.00 lb BP Systolic 124 mmHg BP Diastolic 78 mmHg Respiratory Rate 16 /min Body Temperature 97.5 F Pain Level 4 BMI (Body Mass Index) 26.4 kg/m2 03/07/2017 Height 68.25 inches 5'8.25" Weight 175.00 lb Heart Rate 82 /min Respiratory Rate 16 /min Body Temperature 97.3 F Pain Level 5 BMI (Body Mass Index) 26.4 kg/m2 02/14/2017 Height 68.25 inches 5'8.25" Weight 175.00 lb Heart Rate 68 /min BP Systolic 118 mmHg BP Diastolic 66 mmHg Body Temperature 96.1 F Pain Level 6 BMI (Body Mass Index) 26.4 kg/m2 01/06/2017 Height 68.25 inches 5'8.25" Weight 172.00 lb Heart Rate 62 /min BP Systolic Sitting 130 mmHg BP Diastolic Sitting 82 mmHg Body Temperature 97.4 F BMI (Body Mass Index) 26.0 kg/m2 09/07/2016 Height 68 inches 5'8" Weight 175.00 lb BP Systolic 136 mmHg BP Diastolic 79 mmHg Respiratory Rate 15 /min Body Temperature 97.2 F Pain Level 6 BMI (Body Mass Index) 26.6 kg/m2 08/17/2016 Height 68 inches 5'8" Weight 175.00 lb Heart Rate 56 /min BP Systolic 122 mmHg BP Diastolic 78 mmHg Respiratory Rate 11 /min Pain Level 0 BMI (Body Mass Index) 26.6 kg/m2 08/12/2016 Height 68 inches 5'8" Weight 175.00 lb Heart Rate 54 /min BP Systolic 144 mmHg BP Diastolic 82 mmHg Body Temperature 96.5 F Pain Level 6 BMI (Body Mass Index) 26.6 kg/m2 03/16/2016 Height 68 inches 5'8" Weight 175.00 lb Respiratory Rate 16 /min Pain Level 5 BMI (Body Mass Index) 26.6 kg/m2 09/21/2015 Height 68 inches 5'8" Weight 175.00 lb Heart Rate 70 /min BP Systolic 150 mmHg BP Diastolic 80 mmHg BMI (Body Mass Index) 26.6 kg/m2 07/20/2015 Height 68 inches 5'8" Weight 185.00 lb Pain Level 4 -5 BMI (Body Mass Index) 28.1 kg/m2 06/19/2015 Height 68 inches 5'8" Weight 185.00 lb Pain Level 5 BMI (Body Mass Index) 28.1 kg/m2 05/01/2015 Height 68 inches 5'8" Weight 185.00 lb BMI (Body Mass Index) 28.1 kg/m2 03/30/2015 Height 68 inches 5'8" Weight 185.00 lb Body Temperature 97.4 F BMI (Body Mass Index) 28.1 kg/m2 03/11/2015 Height 68 inches 5'8" Weight 185.00 lb Heart Rate 71 /min BP Systolic 146 mmHg BP Diastolic 82 mmHg BMI (Body Mass Index) 28.1 kg/m2 11/11/2014 Height 68 inches 5'8" Weight 185.00 lb Pain Level 2 varie depending on use BMI (Body Mass Index) 28.1 kg/m2 10/31/2014 Height 68 inches 5'8" Weight 185.00 lb Heart Rate 68 /min BP Systolic 155 mmHg BP Diastolic 90 mmHg Pain Level 7 BMI (Body Mass Index) 28.1 kg/m2 09/30/2014 Height 68 inches 5'8" Weight 185.00 lb Pain Level 1 BMI (Body Mass Index) 28.1 kg/m2 09/09/2014 Height 68 inches 5'8" Weight 185.00 lb Pain Level 6 with movement/and during night while sleeping BMI (Body Mass Index) 28.1 kg/m2 08/05/2014 Height 68 inches 5'8" Weight 185.00 lb Body Temperature 97.4 F Pain Level 4 BMI (Body Mass Index) 28.1 kg/m2 06/24/2014 Height 68 inches 5'8" Weight 185.00 lb Pain Level 2 BMI (Body Mass Index) 28.1 kg/m2 05/26/2014 Height 68 inches 5'8" Weight 185.00 lb Pain Level 1 BMI (Body Mass Index) 28.1 kg/m2 04/28/2014 Height 68 inches 5'8" Weight 185.00 lb Heart Rate 59 /min BP Systolic 145 mmHg BP Diastolic 87 mmHg BMI (Body Mass Index) 28.1 kg/m2 03/17/2014 Height 68 inches 5'8" Heart Rate 58 /min BP Systolic 149 mmHg BP Diastolic 100 mmHg 12/24/2013 Height 68 inches 5'8" Heart Rate 72 /min BP Systolic 129 mmHg BP Diastolic 80 mmHg Pain Level 3 11/26/2013 Height 68 inches 5'8" Weight 180.00 lb Heart Rate 67 /min BP Systolic 128 mmHg BP Diastolic 80 mmHg BMI (Body Mass Index) 27.4 kg/m2 Results Test Date Test Result H/L Range Note Laboratory test finding 08/29/2016 Gram Stain Smear SEE RESULT BELOW 1 , 2 Body Fluid Cell Count 08/29/2016 Body Fluid Source Synovial Fluid 1 Body Fluid Appearance Bloody 1 Body Fluid Color [place] 1 Body Fluid Volume 10 mL 1 Body Fluid WBC 19 /mcL 1, 3 Body Fluid RBC 8971 /mcL 1 Body Fluid Neutrophils 60 % 1 Body Fluid Lymph 40 % 1 Body Fluid Total Cells Counted 5 1 Fluid Reviewed By MD (SEE NOTE) 1, 4 Laboratory test 08/29/2016 Body Fluid Culture SEE RESULT BELOW 1, 5 finding Bottles Laboratory test 06/19/2015 Erythrocyte Sed Rate 8 mm/Hr 0-20 finding CBC Auto Diff 06/19/2015 White Blood Count 5.6 10^3/uL 3.5-10.8 Red Blood Count 4.98 10^6/uL 4.0-5.4 Hemoglobin 14.8 g/dL 14.0-18.0 Hematocrit 45 % 42-52 Mean Corpuscular Volume 90 fL 80-94 Mean Corpuscular Hemoglobin 30 pg 27-31 Mean Corpuscular HGB Conc 33 g/dL 31-36 Red Cell Distribution Width 15 % 10.5-15 Platelet Count 231 10^3/uL 150-450 Mean Platelet Volume 7 um3 Low 7.4-10.4 Abs Neutrophils 2.2 10^3/uL 1.5-7.7 Abs Lymphocytes 2.9 10^3/uL 1.0-4.8 Abs Monocytes 0.4 10^3/uL 0-0.8 Abs Eosinophils 0.1 10^3/uL 0-0.6 Abs Basophils 0 10^3/uL 0-0.2 Abs Nucleated RBC 0.01 10^3/uL Granulocyte % 38.7 % 38-83 Lymphocyte % 51.8 % High 25-47 Monocyte % 7.0 % 1-9 Eosinophil % 1.7 % 0-6 Basophil % 0.8 % 0-2 Nucleated Red Blood Cells % 0.2 Laboratory test finding 06/19/2015 C Reactive Protein < 1.00 mg/L < 5.00 6 Laboratory test finding 03/11/2015 Urine Culture SEE RESULT BELOW 7 Type & Screen 03/11/2015 Patient Blood Type AB Positive Antibody Screen NEGATIVE Urinalysis Profile 03/11/2015 Urine Color Yellow Urine Appearance Clear Urine Specific Daphne 1.014 1.010-1.030 Urine pH 7.0 5-9 Urine Urobilinogen Negative Negative Urine Ketones Negative Negative Urine Protein Negative Negative Urine Leukocytes Negative Negative Urine Blood Negative Negative Urine Nitrite Negative Negative Urine Bilirubin Negative Negative Urine Glucose Negative Negative Laboratory test finding 03/11/2015 Inr/Protime 1.03 0.89-1.11 Partial Thrombo Time PTT 32.6 seconds 26.0-36.3 1 LEFT HIP ASPIRATION 2 SEE RESULT BELOW Name: TARIK RUIZ : [address]: Darryl Bergman MD Acct: [id number] Unit: [id number] AGE: 61 Location: Re08/29/16 SEX: M Status: REG REF SPEC: [id number] DINO: 08/29/16-[address] [facility] [address]: Darryl Bergman MD REQ: [id number] RECD: 08/29/160095 STATUS: COMP OT DR: Lupe Guerrero MD _ SOURCE: BODY FLUID SPDESC:HIP LEFT ORDERED: Gram Stain COMMENTS: JOINT FLUID: LEFT HIP Procedure Result Reported Site Gram Stain Final 08/29/16- 1601 ML No Neutrophils Observed No Organisms Seen BY CYTOSPIN SMEAR * ML - MAIN LAB ([facility]) . END OF REPORT * ML=Testing performed at Main Lab DEPARTMENT OF PATHOLOGY, [address] [place] [address] Scout Rowland M.D. Director [facility] # [id number] 3 -- REFERENCE VALUE -- Synovial: <150/mcL Peritoneal: <500/mcL Pleural: <500/mcL Pericardial: <500/mcL 4 Blood is present. No evidence of an acute inflammatory response. No evidence of malignancy. Reviewed by Denise Cooper MD 5 SEE RESULT BELOW Name: TARIK RUIZ : [address]: Darryl Bergman MD Acct: [id number] Unit: [id number] AGE: 61 Location: SP Re08/29/16 SEX: M Status: REG REF SPEC: [id number] DINO: 08/29/16-[address] [facility] [address]: Darryl Bergman MD REQ: [id number] RECD: 08/29/16 STATUS: MARÍA VENCES DR: Lupe Guerrreo MD _ SOURCE: JOINT FLUI SPDESC:HIP LEFT ORDERED: BF Cult Bottles COMMENTS: PEDS BOTTLE Procedure Result Reported Site BF Aerobic Culture Bottle Final 09/03/16- 1538 ML No Growth Day 5 BF Anaerobic Culture Bottle Final 08/31/16- 1057 ML Test not performed * ML - MAIN LAB ([facility]) . END OF REPORT * ML=Testing performed at Main Lab DEPARTMENT OF PATHOLOGY, [address] [place] [address] Scout Rowland M.D. Director [facility] # [id number] 6 Acute inflammation: >10.00 7 SEE RESULT BELOW Name: TARIK RUIZ : [address]: Lupe Krueger MD Acct: [id number] Unit: [id number] AGE: 59 Location: [facility] Re03/11/15 SEX: M Status: REG REF SPEC: [id number] DINO: 03/11/15-[address]: Lupe Krueger MD REQ: [id number] RECD: 03/11/15 STATUS: MARÍA VENCES DR: Reece Guerrero MD _ SOURCE: URINE SPDESC: ORDERED: Urine Culture QUERIES: Urine Source: Random Procedure Result Reported Site Urine Culture Final 03/12/15- 1304 ML No Growth (<1,000 CFU/mL) * ML - MAIN LAB ([facility]) . END OF REPORT * ML=Testing performed at Main Lab DEPARTMENT OF PATHOLOGY, [address] [place] [address] Scout Rowland M.D. Director [facility] # [id number] Procedures Date CPT Code Description Status Comment 03/15/2017 84249 Inject/Drain Joint/Bursa Major W/O US Completed 03/03/2017 96800 I&D Forearm And/Or Wrist;Deep Abscess Or Completed Hematoma 03/03/2017 11168 I&D Forearm And/Or Wrist;Deep Abscess Or Completed Hematoma 03/03/2017 61891 I&D Forearm And/Or Wrist;Deep Abscess Or Completed Hematoma 03/01/2017 56688 Close Split Wound W/Packing Completed 02/20/2017 41004 Carpal Tunnel Release Completed 02/20/2017 46383 Carpal Tunnel Release Completed 02/20/2017 20255 Neuroplasty &/Or Transposition; Ulnar Nerve AT Completed Elbow 02/20/2017 44147 Neuroplasty &/Or Transposition; Ulnar Nerve AT Completed Elbow 02/20/2017 50885 Neuroplasty &/Or Transposition; Ulnar Nerve AT Completed Elbow 03/17/2015 97401 THR Total Hip Replacement Completed 03/17/2015 54703 THR Total Hip Replacement Completed 09/09/2014 28076 Inject/Drain Joint/Bursa Major W/O US Completed 05/14/2014 85070 Arthroscopy Shoulder,W/Rotator Cuff Repair Completed 05/14/2014 78441 Arthroscopy Shoulder,W/Rotator Cuff Repair Completed 05/14/2014 53043 Arthroscopy,Shoulder Decompression Of Completed Subacromial Space W/Acromio 05/14/2014 74357 Arthroscopy,Shoulder Decompression Of Completed Subacromial Space W/Acromio 05/14/2014 80196 Arthroscopy Shoulder Debridement Extensive Completed 05/14/2014 66259 Arthroscopy Shoulder Debridement Extensive Completed 11/26/2013 67394 Rad Shoulder Comp, Min. 2 Views Completed 11/26/2013 21767 Rad Shoulder Comp, Min. 2 Views Completed 11/26/2013 06903 Inject/Drain Joint/Bursa Major W/O US Completed LT Encounters Type Date Location Provider CPT E/M Dx Office Visit 08/18/2017 [facility] [place] [address] G56.21 10:45a C.M.A. G56.01 Office Visit 03/01/2017 3:00a [facility] Matthew Valencia, 08343 L76.32 C.M.ANoah Benitez Office Visit 01/06/2017 10:00a [facility] [place] [address] G56.23 C.M.A. G56.01 Office Visit 09/07/2016 9:15a [facility] Lupe Krueger M.D. 53158 M25.552 C.M.A. Z96.642 M61.552 Office Visit 08/17/2016 8:45a [facility] Darryl Bergman M.D. 74614 M25.552 C.M.A. Z96.642 Office Visit 08/12/2016 3:15p [facility] Lupe Krueger M.D. 30345 M25.552 C.M.A. Z96.642 Office Visit 03/16/2016 8:15a [facility] Krueger M.D. 44779 M25.552 C.M.A. Z96.642 Office Visit 09/21/2015 8:15a [facility] Krueger M.D. 51198 M25.552 C.M.A. Z47.1 Z96.642 M54.16 Office Visit 07/20/2015 10:45a [facility] Lu[facility] Krueger M.D. 53056 Z47.1 C.M.A. Z96.642 M25.552 M54.5 Office Visit 06/19/2015 8:45a [facility] Lupe Krueger M.D. 66644 Z47.1 C.M.A. Z96.642 M25.552 Office Visit 11/11/2014 1:10p [facility] Pepe Hubbard M.D. 58695 V54.89 C.M.A. 726.13 Office Visit 10/31/2014 8:30a [facility] Lupe Krueger M.D. 59199 719.45 C.M.A. 715.15 Office Visit 09/30/2014 1:00p [facility] Pepe Hubbard M.D. 47104 719.41 C.M.A. V54.89 Office Visit 09/09/2014 1:45p [facility] Pepe Hubbard M.D. 99660 V54.89 C.M.A. 719.41 Office Visit 03/17/2014 9:00a [facility] Maryanne Carlos 32904 840.4 C.M.A. RPA-C Office Visit 12/24/2013 8:15a [facility] Pepe Hubbard M.D. 41725 840.4 C.M.A. Office Visit 11/26/2013 8:15a [facility] Hubbard M.D. 53681 840.4 C.M.A. 718.81 726.19 Plan of Care 09/28/2017 - Breanne Neves M.D.M50.122 Cervical disc disorder at C5-C6 level with radiculopathyNew Therapy:Physical ZzqaewqV36.2 Paresthesia of skinNew Orders:EMG w/Nerve Conduct Study, LowerEMG w/Nerve Conduct Study, UpperFollow up :restaurant front manager: Please get Dr. Fang's previous emg/ncs two visits: schedule emg/ncs as well as f/u in clinic about 4 weeks after study.Recommendations: reduce alcohol by 50% avoid leaning on left xovndP93.2 Abnormal reflex
[2017-10-27 13:07] VITALS: BP 112/71
--- NOTE | 2017-10-27 13:10 | UC ---
Eye Complaint HPI - HPI Summary HPI Summary: 62 yo male presents with b/l eye irritation and rash to both hands. He tells me that yesterday he noticed his b/l eyes were itchy so he was scratching them a lot. Today noticed sound lower eyelid swelling of his LEFT eye and some redness , and injection to his RIGHT eye. Also noticed some red rashes on his hands that is very itchy. Denies fever, chills, vision changes, or FB in eye. Does not wear contacts - History of Current Complaint Chief Complaint: UCEye Stated Complaint: EYE IRRITATION Time Seen by Provider: 10/27/17 13:10 Hx Obtained From: Patient Severity Initially: Mild Severity Currently: Moderate Pain Intensity: 6 Pain Scale Used: 0-10 Numeric - Allergies/Home Medications Allergies/Adverse Reactions: Allergies Allergy/AdvReac Type Severity Reaction Status Date / Time itraconazole [From Sporanox] Allergy Hives Verified 10/27/17 13:07 Home Medications: Home Medications tiZANidine TAB* [Zanaflex TAB*] 2 mg PO DAILY 10/27/17 [History Confirmed ] PMH/Surg Hx/FS Hx/Imm Hx - Additional Past Medical History Additional PMH: Rheumatoid Arthritis Endocrine History: Dyslipidemia - Surgical History Surgical History: Yes Surgery Procedure, Year, and Place: 1999 LASIX - EYE [place] (DR JACOBSEN). 1992 VASECTOMY [facility] [place]. 1984 LT HEEL BONE SPUR REMOVED [facility] [place]. 2014 [place] [facility] [place] [facility] [place]. 2014 LEFTSHOULDER SURGERY [facility] [place]. RIGHT CTR AND ULNAR NERVE TRANSPOSTION - [facility] - Family History Known Family History: Positive: None Negative: Seizure Disorder - Social History Occupation: Employed Full-time Lives: With Family Alcohol Use: Occasionally Alcohol Amount: 2 DRINKS PER WEEK Substance Use Type: None Smoking Status (MU): Former Smoker Type: Cigarettes Amount Used/How Often: 1/2PPD 6 YRS Have You Smoked in the Last Year: No When Did the Patient Quit Smoking/Using Tobacco: 1980 - Immunization History Most Recent Influenza Vaccination: 2014 Most Recent Tetanus Shot: 2015 Most Recent Pneumonia Vaccination: NEVER Review of Systems Constitutional: Negative Skin: Rash Eyes: Eye Redness Respiratory: Negative Cardiovascular: Negative Neurovascular: Negative Neurological: Negative Psychological: Negative All Other Systems Reviewed And Are Negative: Yes Physical Exam - Summary Physical Exam Summary: GENERAL: NAD. WDWN. No pain distress. SKIN: Mildly erythematous dry patches on the insides of each finger b/l. No open sores, streaking, or burrows. HEENT: Head: AT/NC Eyes: EOM intact. RIGHT EYE: Mild conjunctiva inflammation and clear discharge. Mild scleral injection. LEFT EYE: Lower eyelid with mild regi and erythema. Mildly TTP. Conjunctiva clear without inflammation or discharge. Ears: Hearing grossly normal. TMs intact, no bulging, erythema, or edema. Nose: Nasal mucosa pink and moist. NTTP maxillary and frontal sinus. Throat: Posterior oropharynx without exudates, erythema, or tonsillar enlargement. Uvula midline. NECK: Supple. Nontender. No lymphadenopathy. CHEST: CTAB. No r/r/w. No accessory muscle use. Breathing comfortably and in no distress. CV: RRR. Without m/r/g. Pulses intact. Brisk cap refill. NEURO: Alert. CN II-XII grossly intact. PSYCH: Age appropriate behavior. Triage Information Reviewed: Yes Vital Signs: Initial Vital Signs Temp 98 F 10/27/17 13:03 Pulse 56 10/27/17 13:03 Resp 16 10/27/17 13:03 BP 112/71 10/27/17 13:03 Pulse Ox 100 10/27/17 13:03 Vital Signs Reviewed: Yes Eye Complaint Course/Dx - Course Course Of Treatment: Right eye conjunctivitis. Left eye with mild surrounding early cellulitis. B/l hands with contact dermatitis - Differential Dx/Diagnosis Provider Diagnoses: Right eye conjunctivitis. Left eye with mild surrounding early cellulitis. B/l hands with contact dermatitis Discharge - Sign-Out/Discharge Documenting (check all that apply): Patient Departure - Discharge Plan Condition: Stable Disposition: HOME Prescriptions: Clindamycin HCl 150 mg PO TID #21 capsule Hydrocortisone 1% CREAM* [Hytone Cream 1%*] 1 applic TOPICAL BID PRN #1 tube PRN Reason: Rash Polymyx/Trimethoprim OPTH* [Polytrim OPHTH*] 1 drop BOTH EYES TID #1 btl Patient Education Materials: Contact Dermatitis (DC), Conjunctivitis (ED) Referrals: Reece Guerrero MD [Primary Care Provider] - Additional Instructions: If you develop a fever, shortness of breath, chest pain, new or worsening symptoms - please call your PCP or go to the ED. - Billing Disposition and Condition Condition: STABLE Disposition: Home
== END 2017-10-27 13:41 | disposition home or self-care (01) ==
LOC: UCEAST 12:35
DX: H10.9 Unspecified conjunctivitis (principal); H00.035 Abscess of left lower eyelid; L25.9 Unspecified contact dermatitis, unspecified cause; Z88.8 Allergy status to other drugs, medicaments and biological substances; M06.9 Rheumatoid arthritis, unspecified; Z87.891 Personal history of nicotine dependence
CPT/HCPCS: 99212; G0463

== ENCOUNTER 2019-04-11 10:33 | Day surgery (SDC) | payer OTHER ==
[~2019-04-11 10:33] MED LIST changes: -Buffered Lidocaine 0.9% SYRIN* 5 ML/SYR SYRINGE INTRADERM ONE; +Dexamethasone IV* 4 MG/ML 1 ML (4 MG) IV SLOW PU ONE; +Lactated Ringers 1000 ML Bag* 1,000 ML IV SCH; +Scopolamine 1.5 mg* PATCH TRANSDERM ONE
[2019-04-11] MEDS ORDERED: Midazolam* 1 MG/ML 2 ML VIAL (2 MG) ONE (10:42)
[2019-04-11] MEDS ORDERED: fentaNYL* 50 MCG/ML 2 ML VIAL (100 MCG VIAL) ONE (10:42)
[2019-04-11] MEDS ORDERED: KETAMINE HCL* 50 MG/ML 10 ML VIAL ONE (10:42)
[2019-04-11] MEDS ORDERED: Scopolamine 1.5 mg* PATCH ONE ×2 (10:47→11:08)
[2019-04-11] MEDS ORDERED: ceFAZolin 2 GM PREMIX in ORs 2 GM/50 ML BAG ONE (10:48)
[2019-04-11] MEDS ORDERED: Dexamethasone IV* 4 MG/ML 1 ML (4 MG) ONE (10:48)
[2019-04-11] MEDS ORDERED: Famotidine IV* 10 MG/ML 2 ML (20 mg) ONE (10:49)
[2019-04-11] MEDS ORDERED: Bupivacaine 0.25% SDV* 30 ML ONE (11:42)
[2019-04-11] MEDS ORDERED: Buffered Lidocaine 1% SYRIN* 1 ML/SYRINGE INTRADERM ONE (11:49)
[2019-04-11] MEDS ORDERED: Propofol* 10 MG/ML 20 ML BTL ONE (12:15)
[2019-04-11] MEDS ORDERED: Lidocaine 2% PF * 5 ML VIAL ONE (12:15)
[2019-04-11] MEDS ORDERED: Ondansetron INJ* 2 MG/ML VIAL ONE (13:48)
[2019-04-11] MEDS ORDERED: Ketorolac INJ* 30 MG/ML 1 ML VIAL ONE (13:48)
[2019-04-11] MEDS ORDERED: EPHEDrine (Pressors)* 50 MG/ML VIAL ONE (14:15)
[2019-04-11] MEDS ORDERED: Naloxone* 0.4 MG/ML 1 ML VIAL IV PRN (14:47)
[2019-04-11] MEDS ORDERED: fentaNYL* 50 MCG/ML 2 ML VIAL (100 MCG VIAL) IV PRN (14:47)
[2019-04-11] MEDS ORDERED: DiMENhydriNATE IV* 50 MG/ML VIAL IV PUSH PRN (14:47)
[2019-04-11] MEDS ORDERED: HYDROcodone/ACETAMIN 5-325 MG* 1 TAB ONE (15:23)
[2019-04-11 15:51] VITALS: BP 119/67
--- NOTE | 2019-04-11 21:10 | OP ---
DATE OF OPERATION: 04/11/19 - [facility] DATE OF : 57 SURGEON: Andres Camp MD. GAME MODERATOR: KAYLEEN Alcaraz. ANESTHESIOLOGIST: Dr. Schreiber. ANESTHESIA: General. PRE-OP DIAGNOSES: 1. Left elbow medial epicondylitis, chronic. 2. 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 POST-OP DIAGNOSES: 1. Left elbow medial epicondylitis, chronic. 2. 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 OPERATIVE PROCEDURES: 1. Left elbow medial epicondylitis debridement. 2. Left ulnar nerve decompression with anterior transposition. INDICATIONS: Mr. Simon has had a prior right ulnar nerve transposition. He has some subluxation of the left ulnar nerve, has off and on had some ulnar nerve neuritis. Principally, now the main issue is the medial epicondylitis. This has been chronic. He has had multiple injections. We talked about treatment options, risks and benefits. He had a hematoma due to his Xarelto after the last surgery on the right side. We talked about the need to come off of his anticoagulation, the risk associated with that, he wants to proceed. ESTIMATED BLOOD LOSS: 2 mL. COMPLICATIONS: None. FINDINGS: See above and below. DESCRIPTION OF PROCEDURE: Mr. Simon was seen in the preoperative holding area. The correct site, side, and procedure were identified. We came back to the operating room, the arm was prepped and draped in the usual fashion, and a time- out was performed. The arm was exsanguinated with the Esmarch and the tourniquet was inflated to 225 mmHg. I made a curvilinear incision centered over the cubital tunnel. Dissection was carried down through the subcutaneous tissue. The medial antebrachial cutaneous nerve was preserved. The ulnar nerve was unroofed proximal to the Robles's ligament. The release was carried out past the arcade of [place] with the use of an appendiceal retractor. I then came distally and released the Robles's ligament. I released the FCU fascia. I split the 2 heads of the FCU and released the subfascial layer. The motor branches were identified and preserved. The nerve was subluxated up over the medial epicondyle. I went ahead and left the nerve alone for now and I turned my attention towards the medial epicondyle. I went ahead and raised step cut fascial flaps in the flexor pronator fascia. The muscle was left intact underneath. A very degenerative medial epicondyle was immediately seen. I took the 15 blade and went ahead and debrided all of the degenerative tissue and handed off as a specimen. The tendinous septa were excised. The debridement of the medial epicondyle was completed with a rongeur and a curette. At this point, everything was looking very nice. I went ahead and mobilized the ulnar nerve. A vessel loop was used for gentle retraction as I performed a neurolysis and mobilized the nerve. I then mobilized the motor branch to the ulnar head of the FCU to gain some length. The medial intermuscular septum was excised. The leading edge of the FCU fascia was excised. The nerve was then transposed up onto the muscular bed. The two ends of the fascial flaps were sewed together with end to end with 4-0 Ethibond suture to keep the nerve in the transposed position. At this point, meticulous hemostasis was obtained with the Bovie and the bipolar. The wound had been irrigated out, subcutaneous tissue was reapproximated with 3-0 Vicryl, skin was closed with 3-0 Monocryl and Steri-Strips. 30 mL of 0.25% plain Marcaine were infiltrated all about the operative area. The wounds were dressed with 4x4s, an ABD, sterile Webril and then a long arm splint with a lateral buttress was applied. He was taken to the recovery room in stable condition. [id number]/[facility] #: [id number] JOCE
== END 2019-04-11 16:16 | disposition home or self-care (01) ==
LOC: OREAST 10:33
PROVIDERS: ATTEND Orthopaedic Surgery Hand Surgery
DX: M77.02 Medial epicondylitis, left elbow (principal); G56.02 Carpal tunnel syndrome, left upper limb; M06.9 Rheumatoid arthritis, unspecified; M19.90 Unspecified osteoarthritis, unspecified site; Z86.718 Personal history of other venous thrombosis and embolism; Z79.01 Long term (current) use of anticoagulants; Z87.891 Personal history of nicotine dependence; R20.0 Anesthesia of skin; L40.9 Psoriasis, unspecified
CPT/HCPCS: 88304; A9270-GY; J0690; J1100; J1885; J2250; J2405; J2704; J3010; J3490

== ENCOUNTER 2024-05-07 05:37 | Observation (INO) ==
[2024-05-07] MEDS: Buffered Lidocaine 1% SYRIN 1 ml INTRADERM ONE (06:05)
[2024-05-07] MEDS ORDERED: Bupivacaine 0.25% SDV 30 ML ONE ×2 (06:09→06:58)
[2024-05-07] MEDS ORDERED: ceFAZolin 2 GM PREMIX 2 GM/50 ML BAG ONE (06:09)
[2024-05-07] MEDS ORDERED: Famotidine IV 10 MG/ML 2 ml VIAL (20 mg) ONE (06:09)
[2024-05-07] MEDS ORDERED: Dexamethasone IV 4 MG/ML VIAL 1 ml VIAL ONE (06:09)
[2024-05-07] MEDS ORDERED: Tranexamic Acid 1 GM/100ML BAG 2,000 MG/200 ML BAG IV ONE (06:09)
[2024-05-07] MEDS: Famotidine IV 10 MG/ML 2 ml VIAL (20 mg) IV ONE (06:22)
[2024-05-07] MEDS: Lactated Ringers 1000 ml BAG 1,000 ML IV SCH ×2 (06:23→12:25)
[2024-05-07] MEDS: Dexamethasone IV 4 MG/ML VIAL 1 ml VIAL IV SLOW PU ONE (06:23)
[2024-05-07 06:26] LABS: Rapid COVID-19 Molecular Undetected (Undetected)
[2024-05-07] MEDS ORDERED: Propofol 10 MG/ML 20 ML BTL ONE ×3 (07:22→09:47)
[2024-05-07] MEDS ORDERED: Midazolam 2 mg/2 ml VIAL 1 mg/ml 2 ml VIAL (2 mg) ONE ×2 (07:22→07:50)
[2024-05-07] MEDS ORDERED: Lidocaine 2% PF 5 ML VIAL ONE (07:22)
[2024-05-07] MEDS ORDERED: fentaNYL 100 mcg/2 ml 50 MCG/ML VIAL ONE ×2 (07:22→10:49)
[2024-05-07] MEDS ORDERED: Phenylephrine IV 10 MG/ML 1 ml VIAL ONE (07:27)
[2024-05-07] MEDS ORDERED: Morphine 4 MG/ML VIAL (1 ml) IV PRN (07:55)
[2024-05-07] MEDS ORDERED: Naloxone 0.4 mg VIAL 0.4 mg/ml 1 ml VIAL IV PRN (07:55)
[2024-05-07] MEDS ORDERED: Ondansetron 4 mg VIAL 2 MG/ML 2 ml VIAL ONE (08:05)
[2024-05-07] MEDS ORDERED: Glycopyrrolate IV 0.2 MG/ML 1 ML VIAL ONE (08:21)
[2024-05-07] MEDS ORDERED: Sodium Chloride 0.9% 10 ML ONE (08:54)
[2024-05-07] MEDS ORDERED: Lactulose 30 ml UDC PO PRN (10:25)
[2024-05-07] MEDS ORDERED: Morphine 2 MG/ML SYRINGE IV PRN (10:25)
[2024-05-07] MEDS ORDERED: Magnesium Hydroxide LIQ 30 ML UDC PO PRN (10:25)
[2024-05-07] MEDS ORDERED: Calcium Carb (TUMS) 500 mg CHEW TAB PO PRN (10:25)
[2024-05-07] MEDS ORDERED: Polyethylene Glycol 3350 17 GM PACKET PO PRN (10:25)
[2024-05-07] MEDS: fentaNYL 100 mcg/2 ml 50 MCG/ML VIAL IV PRN (10:51)
[2024-05-07] MEDS: BUPIVACAINE **LIPOSOME/PF 13.3 MG/ML (266MG/ 20ML) VIAL (RESTRICTED) INFIL ONE (12:25)
[2024-05-07] MEDS: Ondansetron ODT 4 mg TAB 4 MG TAB PO PRN (14:14)
[2024-05-07] MEDS: ceFAZolin 2 GM PREMIX 2 GM/50 ML BAG IV SCH (16:04)
[2024-05-07] MEDS: Magnesium Hydroxide LIQ 30 ML UDC PO SCH (21:27)
[2024-05-07] MEDS: Benzocaine/Menthol LOZ MT PRN (21:34)
[2024-05-08 06:55] LABS: Hematocrit 33.4 % (38-53); Mean Platelet Volume 8.2 fL (7.5-11.2); Platelet Count 167 10^3/uL (150-450)
[2024-05-08 07:22] LABS: Calcium 8.2 mg/dL (8.6-10.3); Creatinine, Serum 0.78 mg/dL (0.67-1.17); eGFR CKD-EPI 97.7 (>60)
[2024-05-08] MEDS: Ondansetron 4 mg VIAL 2 MG/ML 2 ml VIAL IV PRN (07:33)
[2024-05-08] MEDS: Vitamin THERAPEUTIC TAB PO SCH (08:06)
[2024-05-08] MEDS: Metoclopramide 5 MG/ML VIAL (10 mg) IV ONE (09:12)
[2024-05-08] MEDS: Scopolamine 1 mg/72hr PATCH TRANSDERM SCH (09:12)
[2024-05-09 06:23] VITALS: BP 111/62
[2024-05-09 06:52] LABS: Hematocrit 31.9 % (38-53); Hemoglobin 11.5 g/dL (13.2-16.3); Mean Platelet Volume 8.4 fL (7.5-11.2); Platelet Count 139 10^3/uL (150-450)
[2024-05-09 07:07] LABS: Calcium 7.6 mg/dL (8.6-10.3); Creatinine, Serum 0.82 mg/dL (0.67-1.17); eGFR CKD-EPI 96.3 (>60)
== END 2024-05-09 10:55 | disposition home or self-care (01) ==
LOC: OR 05:37 → SSU 05:37
PROVIDERS: ADMIT Orthopaedic Surgery Sports Medicine; ATTEND Orthopaedic Surgery Sports Medicine